=== PATIENT | male | born 1970 | race Two or more races ===

== ENCOUNTER → 2020-02-28 | Outpatient (CLI) | payer OTHER ==
[~2020-02-28] MED LIST: IOHEXOL 350 MG/ML 100ML IJ ONE; METOPROLOL TARTRATE 1MG/1ML-5ML VIAL IV ONE; NITROGLYCERIN 0.4 MG SL TAB SL ONE
== END | disposition home or self-care (01) ==
LOC: CT 09:21
DX: I11.9 Hypertensive heart disease without heart failure (principal); E78.5 Hyperlipidemia, unspecified; R07.9 Chest pain, unspecified
CPT/HCPCS: 75571; 75574; Q9967

== ENCOUNTER → 2024-04-29 | Outpatient (CLI) | payer BC ==
[2024-04-29 06:42] LABS: Urine Bacteria None Seen /hpf (None Seen)
[2024-04-29 06:55] LABS: Basophils # (auto) 0 10 ^3/uL (0-0.2); Hemoglobin 15.1 g/dL (13.5-17.5); Monocytes # (auto) 1.1 10 ^3/uL (0-1.3); Nucleated Red Blood Cells % 0.1 %
[2024-04-29 07:01] LABS: Basophils % (auto) 0.4 % (0.0-2.0); Eosinophils # (auto) 0.2 10 ^3/uL (0-0.8); Eosinophils % (auto) 2.9 % (0.0-7.0); Hematocrit 42.6 % (41.0-53.0); Lymphocytes # (auto) 2.4 10 ^3/uL (0.4-5.4); Lymphocytes % (auto) 28.8 % (10.0-50.0); Mean Corpuscular Hemoglobin 34.7 pg (28.0-32.0); Mean Corpuscular Hgb Conc. 35.4 g/dL (32.0-36.0); Mean Corpuscular Volume 97.9 fL (80.0-100.0); Monocytes % (auto) 12.9 % (0.0-12.0); Neutrophils # (auto) 4.6 10 ^3/uL (1.6-8.6); Red Blood Cells 4.35 10^6/uL (4.5-5.90); Red Cell Distribution Width 13.4 % (11.8-14.3); White Blood Cell 8.4 10^3/uL (4.4-10.8)
[2024-04-29 07:16] LABS: Urine Blood Negative /uL (Negative); Urine Clarity Clear (Clear); Urine Color Yellow (Yellow); Urine Mucus FEW (None Seen); Urine Protein, UAD Negative (Negative); Urine Specific Gravity 1.031 (1.001-1.035); Urine Urobilinogen Normal (Negative); Urine WBC 1 /hpf (0 - 3); Urine pH 5.5 (5.0-9.0)
[2024-04-29 07:24] LABS: Alanine Aminotransferase 39 U/L (7-40); Albumin 4.2 g/dL (3.2-4.8); Alkaline Phosphatase 76 U/L (46-116); Anion Gap 5 (5-15); Aspartate Aminotransferase 23 U/L (13-40); BUN/Creatinine Ratio 19.1 (10.0-20.0); Bilirubin, Total 0.7 mg/dL (0.2-1.0); Blood Urea Nitrogen 21 mg/dL (9-23); Calcium 9.2 mg/dL (8.7-10.4); Carbon Dioxide 28 mmol/L (20-30); Chloride 107 mmol/L (98-107); Cholesterol 183 mg/dL (< 200); Glucose 102 mg/dL (74-106); HDL Cholesterol 47 mg/dL (40-59); LDL Cholesterol 122 mg/dL (< 100); Potassium 4.1 mmol/L (3.5-5.1); Sodium 140 mmol/L (136-145); Total Protein 7.2 g/dL (5.7-8.2); Triglycerides 138 mg/dL (< 150)
== END | disposition home or self-care (01) ==
LOC: LAB 06:24
PROVIDERS: ATTEND Nurse Practitioner Family
DX: Z12.5 Encounter for screening for malignant neoplasm of prostate (principal); Z12.11 Encounter for screening for malignant neoplasm of colon; Z13.89 Encounter for screening for other disorder; Z00.01 Encounter for general adult medical examination with abnormal findings; Z11.3 Encounter for screening for infections with a predominantly sexual mode of transmission; I10 Essential (primary) hypertension; R53.83 Other fatigue
CPT/HCPCS: 36415; 80053; 80061; 81001; 82043; 82306; 83036; 84403; 84443; 85025; 87086

== ENCOUNTER 2024-08-23 09:36 | Day surgery (SDC) | payer BC ==
[2024-08-22 11:07] LABS: Basophils # (auto) 0.1 10 ^3/uL (0-0.2); Basophils % (auto) 0.7 % (0.0-2.0); Eosinophils # (auto) 0.2 10 ^3/uL (0-0.8); Eosinophils % (auto) 2.9 % (0.0-7.0); Hematocrit 42.8 % (41.0-53.0); Hemoglobin 14.7 g/dL (13.5-17.5); Lymphocytes # (auto) 2.6 10 ^3/uL (0.4-5.4); Lymphocytes % (auto) 31.2 % (10.0-50.0); Mean Corpuscular Hemoglobin 33.3 pg (28.0-32.0); Mean Corpuscular Hgb Conc. 34.3 g/dL (32.0-36.0); Mean Corpuscular Volume 97.2 fL (80.0-100.0); Monocytes # (auto) 0.9 10 ^3/uL (0-1.3); Monocytes % (auto) 11.3 % (0.0-12.0); Neutrophils # (auto) 4.4 10 ^3/uL (1.6-8.6); Neutrophils % (auto) 53.9 % (37.0-80.0); Nucleated Red Blood Cells % 0.1 %; Platelet Count (auto) 254 10^3/uL (140-450); Red Cell Distribution Width 12.9 % (11.8-14.3); White Blood Cell 8.2 10^3/uL (4.4-10.8)
[2024-08-22 11:23] LABS: INR 1.04 (0.9-1.15); Partial Thromboplastin Time 25.7 SEC (24.5-34.5)
[2024-08-22 11:50] LABS: Alanine Aminotransferase 35 U/L (7-40); Albumin 3.9 g/dL (3.2-4.8); Alkaline Phosphatase 88 U/L (46-116); Anion Gap 4 (5-15); Aspartate Aminotransferase 22 U/L (13-40); BUN/Creatinine Ratio 15.1 (10.0-20.0); Bilirubin, Total 0.7 mg/dL (0.2-1.0); Blood Urea Nitrogen 14 mg/dL (9-23); Calcium 9.5 mg/dL (8.7-10.4); Carbon Dioxide 30 mmol/L (20-31); Chloride 107 mmol/L (98-107); Glucose 96 mg/dL (74-106); Potassium 4.1 mmol/L (3.5-5.1); Sodium 141 mmol/L (136-145); Total Protein 7.2 g/dL (5.7-8.2)
[~2024-08-23] VITALS: Ht 170.2 cm; Wt 115.7 kg
[~2024-08-23 09:36] MED LIST changes: +EZET10TA22 PO; -IOHEXOL 350 MG/ML 100ML IJ ONE; +LOSA-535 PO; -METOPROLOL TARTRATE 1MG/1ML-5ML VIAL IV ONE; -NITROGLYCERIN 0.4 MG SL TAB SL ONE
[2024-08-23 11:09] VITALS: PULSE 51; RESP 18; O2SAT 96
[2024-08-23] MEDS ORDERED: SODIUM CHLORIDE LOCK 10 ML ONE (11:09)
[2024-08-23] MEDS: fentaNYL CITRATE 100 MCG/2 ML VL ONE (11:14)
[2024-08-23] MEDS: MIDAZOLAM HCL 5 MG/ML-1ML VIAL ONE (11:14)
[2024-08-23] MEDS: diphenhdrAMINE HCL 50 MG/1 ML VL ONE (11:15)
--- NOTE | 2024-08-23 11:54 | DVHOP2 ---
Operative Report DATE OF PROCEDURE: 08/23/24 INDICATIONS FOR THE PROCEDURE: Colon cancer screening PROCEDURE PERFORMED: Colonoscopy and polypectomy by snare of the mid ascending colon polyp Colonoscopy and tattooing of the polypectomy area in the mid ascending colon Colonoscopy and biopsy of the mildly inflamed sigmoid Diverticulosis Small internal hemorrhoid POSTOPERATIVE DIAGNOSIS: Mid ascending colon polyp of about 15 mm sessile removed in piecemeal fashion Tattooing done of this area to delineate for future intervention as necessary since the polyp forceps sessile and had to be removed in piecemeal fashion Colonoscopy and biopsy of the mildly inflamed sigmoid close to the diverticula Extensive diverticulosis of the whole colon the right as well as the left what mostly in the ascending colon and cecum and sigmoid colon Internal hemorrhoids INFORMED CONSENT: The risks and benefits and alternatives were explained to the patient and informed consent was obtained. PROCEDURE IN DETAIL: The patient was kept NPO after midnight. Conscious sedation was given with Versed 3 mg and fentanyl 75 mcg and Benadryl 25 mg Olympus colonoscope was passed through the rectum all the way up to cecum and the terminal ileum Terminal ileum was normal in the distal 5 cm Cecum, ascending colon, hepatic flexure, transverse colon, splenic flexure, descending colon, and sigmoid colon were all visualized and the findings were as follows: Findings: In the mid ascending colon there was a polyp which was sessile and about 15 mm in diameter and was removed in piecemeal fashion Because of the fact that this had to be removed in piecemeal fashion the area was tattooed to delineate for any further intervention if necessary and for further follow-up to ensure that the polyp is completely removed Extensive diverticulosis of the colon especially the right colon as well as sigmoid colon Mild nonspecific sigmoiditis of the sigmoid colon close to the diverticulae Internal hemorrhoids ENDOSCOPIC IMPRESSION: Extensive diverticulosis of the colon Ascending colon polyp sessile and removed in piecemeal fashion tattooing done to delineate this area for follow-up and further intervention as necessary Mild nonspecific sigmoiditis Internal hemorrhoids SUGGESTIONS: Await the biopsy results Because of the polyp was sessile and had to be removed in piecemeal fashion we will recommend repeat evaluation of the colon in six months to ensure the polyp is completely removed and no residual polypoid tissue left The area has been tattooed for follow-up Symptomatic treatment for diverticulosis and hemorrhoids Thank you Dr. Rascon Copy of the dictation Dr. Baron please LENNY RASCON MD Aug 23, 2024 11:54
[2024-08-23 12:30] VITALS: BP 142/90; PULSE 57; RESP 15; O2SAT 99
== END 2024-08-23 12:35 | disposition home or self-care (01) ==
LOC: GI 09:36
PROVIDERS: ATTEND Internal Medicine Gastroenterology
DX: Z12.11 Encounter for screening for malignant neoplasm of colon (principal); D12.2 Benign neoplasm of ascending colon; K57.30 Diverticulosis of large intestine without perforation or abscess without bleeding; K52.9 Noninfective gastroenteritis and colitis, unspecified; K64.8 Other hemorrhoids; I10 Essential (primary) hypertension; F17.210 Nicotine dependence, cigarettes, uncomplicated; Z79.899 Other long term (current) drug therapy; Z98.52 Vasectomy status; Z98.890 Other specified postprocedural states
CPT/HCPCS: 36415; 45380; 45381; 45385; 80053; 85025; 85610; 85730; 88305; A4648; J1200; J2250; J3010; J7030